=== PATIENT | female | born 1975 | race Caucasian/White ===

== ENCOUNTER 2022-09-17 11:10 | Outpatient (CLI) | payer MEDICARE, SELFPAY | END 2022-09-17 11:11 | disposition home or self-care (01) | PROVIDERS: Visit Provider Family Medicine | DX: F91.9 Conduct disorder, unspecified (principal); F29 Unspecified psychosis not due to a substance or known physiological condition | CPT/HCPCS: A0425; A0429 ==

== ENCOUNTER 2022-09-17 11:30 | Emergency (ER) | payer MEDICARE, SELFPAY ==
[2022-09-17 11:52] VITALS: BP 153/121; PULSE 130; RESP 24; TEMP 35.7; O2SAT 97
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
--- NOTE | 2022-09-17 12:45 | ED.NURSE ---
Lab attempted to draw patient for ordered tests, patient refused. Dr. Deal aware. Now trying to reconcile medication list so PD can take patient to group home.
[2022-09-17 12:47] VITALS: BP 134/99; PULSE 94; RESP 18; O2SAT 97
--- NOTE | 2022-09-17 13:41 | PC.SOCIAL ---
Social work: Spoke with [facility] and confirmed they are able to fill the prescriptions by 2:10pm today total for the four prescriptions comes to $42.45. [place] police to cover this cost and picker and sorter load and unload the medications.
--- NOTE | 2022-09-17 13:45 | ED.NURSE ---
Received medication list from [facility] pharmacy and provided to Lyla, pharmacist. She is reconcilling patient's med with list provided by patient's pharmacy. Plan will be to send any necessary medications to [facility] for PD to picker packer en route to [facility] with patient.
--- NOTE | 2022-09-17 14:00 | ED.NURSE ---
Amitriptyline, hydroxyzine, prazosin, lamotrigine e-scribed by Dr. Deal to [facility] pharmacy. [facility] is en route to pick these up. Albuterol HFA (2 puff daily), Albuterol (2 puff q4-6hr PRN), venlafaxine (150mg PO QD), Ibuprofen (200-400mg every 6-8 hours PRN) were brought to the ED by a contact of the patient (she reports her friend's daughter. This contact did not leave any further belongings, just the medications as listed above.) and were labeled for use by PD/Assisted as needed and as reconcilled by pharmacy. No further medication needs, Dr. Deal aware and will prepare discharge instructions.
--- NOTE | 2022-09-17 14:35 | ED.NURSE ---
Patient leaves in custody of [facility]. Unable to have her sign discharge form but patient and [place] PD officer aware of discharge instructions. Patient provided copy of discharge instructions.
== END 2022-09-17 14:38 ==
PROVIDERS: Emergency Provider Family Medicine
DX: F41.9 Anxiety disorder, unspecified (principal)
CPT/HCPCS: 80053; 80306; 82077; 85025; 99283; 99284